=== PATIENT | male | born 1960 | race Caucasian/White ===

== ENCOUNTER → 2017-06-28 | Outpatient (CLI) | payer OTHER ==
[2017-06-28 17:14] LABS: BASO % 0.2 %; BASO ABS # 0.02 K/uL (0-0.2); COMPLETE YES; EOS % 0.8 %; IG% 0.3 %; LYMPH % 10.5 %; LYMPH ABS # 1.16 K/uL (1.2-3.4); MEAN CELL VOLUME 94.1 fL (80-100); MEAN CORPUSCULAR HEMOGLOBIN 32.9 pg (25-34); MEAN PLATELET VOLUME 9.9 fL (7.4-10.4); MONO % 8.8 %; NEUT % 79.4 %; PLATELET COUNT 219 K/uL (130-400); WHITE BLOOD COUNT 11.05 K/uL (4.8-10.8)
[2017-06-28 17:42] LABS: BLOOD UREA NITROGEN 19 mg/dl (7-18); CARBON DIOXIDE 27 mmol/L (21-32); CHLORIDE 107 mmol/L (98-107); CREATININE 1.11 mg/dl (0.60-1.40); POTASSIUM 4.1 mmol/L (3.5-5.1); SODIUM 138 mmol/L (136-145)
--- NOTE | 2017-06-28 18:08 | DIAGNOSTIC IMAGING REPORT ---
CHEST 2 VIEWS ROUTINE CLINICAL HISTORY: Preoperative evaluation. COMPARISON STUDY: No previous studies for comparison. FINDINGS: Lung volumes are at the upper limits of normal. No pneumothorax or pleural the effusion is present. Nipple shadows project over each lower hemithorax. Cardiac size is normal. Mediastinal contours are normal. There is no evidence of pulmonary edema or pneumonia. IMPRESSION: No acute cardiopulmonary findings. Electronically signed by: João Arthur M.D. 06/28/2017 6:07 PM Dictated Date/Time: 06/28/2017 5:56 PM
== END | disposition home or self-care (01) ==
LOC: C.LAB 16:55
PROVIDERS: ATTEND Nurse Practitioner Adult Health
DX: Z01.818 Encounter for other preprocedural examination (principal); N20.1 Calculus of ureter

== ENCOUNTER → 2017-06-28 | Outpatient (CLI) | payer OTHER ==
--- NOTE | 2017-06-28 16:21 | DIAGNOSTIC IMAGING REPORT ---
KUB CLINICAL HISTORY: 56 years-old Male presenting with CALCULUS OF RIGHT URETER. TECHNIQUE: Single supine view of the abdomen was obtained. COMPARISON: None. FINDINGS: Mild stool burden primarily in the right colon. Nonobstructive bowel gas pattern. No gross pneumoperitoneum. 6 mm calculus in the proximal to mid right ureter at the level of L4. Allowing for bowel gas and stool, no additional renal calculi are evident. Pelvic phleboliths also noted. Osseous structures normal. IMPRESSION: 1. 6 mm calculus in the proximal to mid right ureter at the level of L4. Electronically signed by: Darvin Church M.D. 06/28/2017 4:20 PM Dictated Date/Time: 06/28/2017 4:19 PM
== END | disposition home or self-care (01) ==
LOC: C.RAD 15:02
PROVIDERS: ATTEND Nurse Practitioner Adult Health
DX: N20.1 Calculus of ureter (principal)

== ENCOUNTER → 2017-07-01 | Outpatient (CLI) | payer OTHER ==
[~2017-07-01] MED LIST: HYDR-3419 PO; HYDR-5688 PO; TAMS0.4C38 PO
--- NOTE | 2017-07-01 18:01 | DIAGNOSTIC IMAGING REPORT ---
KUB CLINICAL HISTORY: 56 years-old Male presenting with N20.1 Ureteral calculus, rightTO BE DONE EITHER THE NIGHT BEFORE. TECHNIQUE: Single supine view of the abdomen was obtained. COMPARISON: 06/28/2017. FINDINGS: Mild stool burden primarily in the right colon. Nonobstructive bowel gas pattern. No gross pneumoperitoneum. Previously noted calcification along the course of the proximal right ureter has minimally progressed now projecting over the right transverse process of L5. Few pelvic phleboliths again noted and unchanged in distribution. A central calcification is also a phlebolith as demonstrated on prior CT from 06/24/2017. No additional renal calculi are radiographically evident Osseous structures normal. IMPRESSION: 1. Minimal progression of the proximal right ureteral calculus now at the level of the right transverse process of L5. Electronically signed by: Darvin Church M.D. 07/01/2017 6:00 PM Dictated Date/Time: 07/01/2017 5:58 PM
== END | disposition home or self-care (01) ==
LOC: C.RAD 17:24
PROVIDERS: ATTEND Nurse Practitioner Adult Health
DX: N20.1 Calculus of ureter (principal)

== ENCOUNTER → 2017-07-02 | Day surgery (SDC) | payer OTHER ==
[2017-07-01 13:09] VITALS: Ht 190.5 cm; Wt 102.3 kg
[~2017-07-02] VITALS: Ht 190.5 cm; Wt 102.3 kg
[~2017-07-02] MED LIST changes: +ATROPINE SULFATE 0.1 MG/ML 5ML SYR IV PRN; +CIPROFLOXACIN 400MG / D5W IV SCH; +DEXAMETHASONE SOD INJ 4 MG/ML VIAL ONE; +EpHEDrine SULFATE 50MG/5ML SYR ONE; +EpHEDrine SULFATE INJ 50 MG/ML AMP IV PRN; +FENTANYL CITRATE INJ 50 MCG/1 ML 2 ML VIAL IV PRN; +FENTANYL CITRATE INJ 50 MCG/1 ML 2 ML VIAL ONE; +HYDROCODONE/ACETAMIN 5/325MG TAB ONE; +HYDROCODONE/ACETAMIN 5/325MG TAB PO PRN; +KETOROLAC TROMETHAMINE 30 MG/ML VIAL IV. PRN; +LACTATED RINGER'S 1000ML 1,000 ML IV SCH; +LIDOCAINE HCL 2% 2 ML VIAL (20MG/ML) ONE; +MIDAZOLAM HCL 1 MG/ML 2ML VIAL ONE; +NURSING VERBAL MED ORDER ONE; +ONDANSETRON INJ 2 MG/ML 2 ML VIAL IV PRN; +ONDANSETRON INJ 2 MG/ML 2 ML VIAL ONE; +OXYCODONE/ACETAMINOPHEN 7.5-325 TAB PO PRN; +PATIENT'S ALLERGY INFO NEEDS ENTERED SCH; +PROPOFOL IV EMULSION 10 MG/ML 20 ML VIAL IV ONE
--- NOTE | 2017-07-02 07:51 | History & Physical Bridge - SC ---
H&P Re-Evaluation Bridge Note: I have examined the patient, reviewed the History & Physical and in the interval since the performance of the History & Physical I have noted the following changes of clinical significance: No changes noted
--- NOTE | 2017-07-02 08:57 | [facility] Post Operative Brief Note ---
Immediate Operative Summary Operative Date Jul 02, 2017. Pre-Operative Diagnosis Right Ureteral Stone Post-Operative Diagnosis Same Procedure(s) Performed Right Extracorporeal Shock Wave Lithotripsy Surgeon Dr. You Indexer Surgeon(s) None Estimated Blood Loss 0 Findings stone in ureter appeared to fragment Specimens None Disposition Recovery Room / PACU
--- NOTE | 2017-07-02 08:58 | Discharge Instructions-SurgCtr ---
Discharge Instructions Date of Service Jul 02, 2017. Visit Reason for Visit: Stones Discharge Discharge Diagnosis / Problem: post op eswl Discharge Goals Goal(s): Decrease discomfort, Improve function, Increase independence, Improve disease control Medications Stopped Medications Name(s): Pt. was told not to take and Advil or ASA. Activity Recommendations Activity Limitations: resume your previous activity Anesthesia . Post Anesthesia Instructions: If you have had General Anesthesia or IV Sedation: * Do not drive today. * Resume driving when surgeon permits. * Do not make important decisions or sign legal documents today. * Call surgeon for: 1. Temperature elevations greater than 101 degrees F. 2. Uncontrollable pain. 3. Excessive bleeding. 4. Persistent nausea and vomiting. 5. Medication intolerance (nausea, vomiting or rash). * For nausea and vomiting use only clear liquids such as: tea, soda, bouillon until nausea subsides, then gradually increase diet as tolerated. * If you have any concerns or questions, call your surgeon's office. If physician is unavailable and it is an emergency, call 911 or go to the nearest emergency room. . Diet Recommendations Home Diet: resume previous diet Procedures Procedures Performed: Right Extracorporeal Shock Wave Lithotripsy Pending Studies Studies pending at discharge: no Medical Emergencies . Who to Call and When: Medical Emergencies: If at any time you feel your situation is an emergency, please call 911 immediately. . Non-Emergent Contact Non-Emergency issues call your: Urologist Call Non-Emergent contact if: temperature is above 100.5 . . "Provider Documentation" section prepared by Vadim You. .
[2017-07-02 09:47] VITALS: TEMP 36.4
--- NOTE | 2017-07-02 10:17 | Anesthesia Progress Nt - [facility] ---
Anesthesia Post Op Note Date & Time Jul 02, 2017 at 10:17 Vital Signs Pain Intensity: 2 Vital Signs Past 12 Hours Date Time Temp Pulse Resp B/P (MAP) Pulse Ox O2 Delivery O2 Flow Rate FiO2 07/02/17 09:47 36.4 67 16 126/75 (92) 95 Room Air 07/02/17 09:41 133/85 07/02/17 09:40 75 11 07/02/17 09:40 74 11 93 07/02/17 09:39 36.7 93 Room Air 07/02/17 09:39 78 15 93 07/02/17 09:39 75 15 07/02/17 09:38 79 23 07/02/17 09:38 79 23 95 07/02/17 09:36 131/85 07/02/17 09:33 77 21 07/02/17 09:33 78 21 93 07/02/17 09:32 78 18 94 07/02/17 09:32 78 18 07/02/17 09:31 135/89 07/02/17 09:27 81 13 94 07/02/17 09:27 81 13 07/02/17 09:26 131/84 07/02/17 09:22 77 17 07/02/17 09:22 77 17 98 07/02/17 09:21 135/83 07/02/17 09:17 72 7 97 07/02/17 09:17 73 7 07/02/17 09:16 136/84 07/02/17 09:13 131/82 07/02/17 09:12 36.8 76 16 131/86 97 Mask 6 07/02/17 07:25 36.9 74 16 143/90 (107) 94 Room Air Notes Mental Status: alert / awake / arousable, participated in evaluation Pt Amnestic to Procedure: Yes Nausea / Vomiting: adequately controlled Pain: adequately controlled Airway Patency, RR, SpO2: stable & adequate BP & HR: stable & adequate Hydration State: stable & adequate Anesthetic Complications: no major complications apparent
[2017-07-02 10:43] VITALS: BP 132/83; PULSE 78; O2SAT 96
--- NOTE | 2017-07-02 12:33 | OPERATIVE REPORT ---
DATE OF OPERATION: 07/02/2017 PREOPERATIVE DIAGNOSIS: Right ureteral stone. POSTOPERATIVE DIAGNOSIS: Same. SURGEON: Dr. You. ANESTHESIA: General. INDICATIONS: The patient is a 56-year-old male who presented with a right ureteral stone which was confirmed yesterday on a KUB for ESWL. DESCRIPTION OF THE PROCEDURE: The patient was taken to the operating room where Venodyne stockings were placed. He had received preoperative antibiotics. He was given general anesthesia in the supine position. The stone was viewed and the machine was taken over top . He received 3000 shocks, the majority at level 5, but the last 500 at level 6. The stone did appear to fragment. At the end of the procedure he was transferred to the recovery room in stable condition. I attest to the content of the Intraoperative Record and any orders documented therein. Any exception s are noted below.
== END | disposition home or self-care (01) ==
LOC: X.SURG 06:51
PROVIDERS: ATTEND Urology
DX: N20.1 Calculus of ureter (principal); Z87.442 Personal history of urinary calculi; Z83.3 Family history of diabetes mellitus

== ENCOUNTER → 2017-07-13 | Outpatient (CLI) | payer OTHER ==
[~2017-07-13] MED LIST changes: -ATROPINE SULFATE 0.1 MG/ML 5ML SYR IV PRN; -CIPROFLOXACIN 400MG / D5W IV SCH; -DEXAMETHASONE SOD INJ 4 MG/ML VIAL ONE; -EpHEDrine SULFATE 50MG/5ML SYR ONE; -EpHEDrine SULFATE INJ 50 MG/ML AMP IV PRN; -FENTANYL CITRATE INJ 50 MCG/1 ML 2 ML VIAL IV PRN; -FENTANYL CITRATE INJ 50 MCG/1 ML 2 ML VIAL ONE; -HYDROCODONE/ACETAMIN 5/325MG TAB ONE; -HYDROCODONE/ACETAMIN 5/325MG TAB PO PRN; -KETOROLAC TROMETHAMINE 30 MG/ML VIAL IV. PRN; -LACTATED RINGER'S 1000ML 1,000 ML IV SCH; -LIDOCAINE HCL 2% 2 ML VIAL (20MG/ML) ONE; -MIDAZOLAM HCL 1 MG/ML 2ML VIAL ONE; -NURSING VERBAL MED ORDER ONE; -ONDANSETRON INJ 2 MG/ML 2 ML VIAL IV PRN; -ONDANSETRON INJ 2 MG/ML 2 ML VIAL ONE; -OXYCODONE/ACETAMINOPHEN 7.5-325 TAB PO PRN; -PATIENT'S ALLERGY INFO NEEDS ENTERED SCH; -PROPOFOL IV EMULSION 10 MG/ML 20 ML VIAL IV ONE
== END | disposition home or self-care (01) ==
LOC: C.LABSPEC 17:49
PROVIDERS: ATTEND Urology
DX: N20.1 Calculus of ureter (principal)

== ENCOUNTER → 2017-07-13 | Outpatient (CLI) | payer OTHER ==
--- NOTE | 2017-07-13 14:12 | DIAGNOSTIC IMAGING REPORT ---
KUB CLINICAL HISTORY: Right ureteral calculus. COMPARISON STUDY: CT of the abdomen and pelvis June 24, 2017 and KUB July 01, 2017. FINDINGS: Pelvic calcifications were shown to represent phleboliths on prior CT. The previously described right ureteral calculus is not visualized on this exam. A 7 mm radiodensity projecting over the right inferior sacrum is probably artifactual. No urinary calculi are identified. The bowel gas pattern is normal. IMPRESSION: Previously described right ureteral calculus not definitively identified on this exam. 7 mm density projecting over the inferior right sacrum is probably artifactual. Electronically signed by: João Arthur M.D. 07/13/2017 2:10 PM Dictated Date/Time: 07/13/2017 2:03 PM
== END | disposition home or self-care (01) ==
LOC: C.RAD 13:46
PROVIDERS: ATTEND Nurse Practitioner Adult Health
DX: R93.41 Abnormal radiologic findings on diagnostic imaging of renal pelvis, ureter, or bladder (principal); N20.1 Calculus of ureter